=== PATIENT | female | born 1955 | race Caucasian/White ===

== ENCOUNTER → 2023-08-26 10:38 | Outpatient (REF) | payer MEDICARE, SELFPAY | LOC: RAD 10:38 | PROVIDERS: ATTENDING PHYSICIAN Family Medicine | DX: Z01.818 Encounter for other preprocedural examination (principal) | CPT/HCPCS: 71046 ==

== ENCOUNTER 2023-09-17 19:20 | Emergency (ER) | payer MEDICARE, SELFPAY ==
[2023-09-17 19:27] VITALS: BP 130/81
--- NOTE | 2023-09-17 21:34 | ED.GENMED ---
History of Present Illness
General
Chief Complaint: Fall
Source: patient and spouse
Exam Limitations: none
Time Seen by Provider: 09/17/23 21:02
Nursing documentation reviewed up to this point in time: agreed with
History of Present Illness
History of Present Illness:
68-year-old female without significant past medical history presenting to the emergency department today with concerns of a slip and fall hitting her right knee. Was able to walk immediately thereafter did not hit her head did not lose
consciousness.
Past History
Past History
ED Past Medical History: None
Social History
Personal:
Living: with family
Employment: Employed
Review of Systems
Review of Systems
Allergies reviewed?: Yes
All Other Systems: ROS reviewed and negative except as documented in HPI and ROS
Phy Exam
Physical Exam
Physical Exam:
GENERAL: Alert , in no apparent distress
EYE: pupils equal and reactive
NECK: Supple, no significant adenopathy.
ENT: o/p clr, mmm.
CARDIAC: Regular rate and rhythm .
LUNGS: Clear breath sounds bilaterally, no acute respiratory distress, no wheezes/rales/rhonchi
ABDOMEN: Soft, without focal tenderness, no r/g, no cvat
NEUROLOGICAL: Alert and oriented, no focal neuro deficits
SKIN: Warm and dry, skin intact.
MUSCULOSKELETAL: Bruising and edema to the area just medial to the right patella good range of motion and strength of the knee hip and ankle. No joint laxity, well perfused.
PSYCH: Normal and appropriate interaction.
Course
Orders/Labs/Results
Orders:
Orders
09/17/23 20:43
CR Knee- Right 4 Or More View* Urgent
Reason For Exam: fall, pain
Vital Signs
Initial and Last Documented VS:
Initial Vital Signs
Temp Pulse Resp BP Pulse Ox
98.0 F 93 18 130/81 93
09/17/23 19:27 09/17/23 19:27 09/17/23 19:27 09/17/23 19:27 09/17/23 19:27
Last Documented Vital Signs
Temp Pulse Resp BP Pulse Ox
98.0 F 93 18 130/81 93
09/17/23 19:27 09/17/23 19:27 09/17/23 19:27 09/17/23 19:27 09/17/23 19:27
MDM/Problems Addressed
MDM/Problems Addressed:
68-year-old female presenting to the emergency department today with concerns of a fall hitting her right knee at the medial aspect directly. Does have bruising to the area no joint laxity no abnormalities on x-ray patient with likely bruise to the
area hopeful improvement over the next week or so. Given information for follow-up as needed. Return precautions given.
*Critical Care Note
Total Time (30-74mins, 75-104mins- exclusive of procedures): Not Applicable
ED Attending Note
-
Portions of this chart may have been created with voice recognition software.� Occasional wrong word or��sound alike� substitutions may have occurred due to the inherent limitations of voice recognition software.
Discharge Plan
Departure
Patient Disposition: Home (Routine Discharge)
Date of Disposition: 09/17/23
Time of Disposition: 21:34
Patient with high blood pressure during this ER visit?: No
Condition: Good
Covid-19: Not Applicable
Discharge Problem:
Contusion of right knee
Instructions: Contusion (DC)
Referrals:
Amy Snyder DO [Family Provider] -
Arthur Eli MD [Active] - Follow up in 1 week
Activity Restrictions/Additional Instructions:
You came to the emergency department today with concerns of right-sided knee discomfort. You had an x-ray without signs of fracture. This is likely a contusion. Please rest ice compress and elevate. Return to the emergency department for any
worsening, new or concerning symptoms. Follow-up with orthopedics as needed.
Interventions
Interventions:
*Risk Screen - Suicide Last Done: 09/17/23 19:27
*General Assessment Last Done: 09/17/23 19:27
*Neglect/Abuse Screening Last Done: 09/17/23 19:27
ED-Musculoskeletal Assessment Last Done: 09/17/23 20:47
ED- Neurological Assessment Last Done: 09/17/23 20:47
ED-Skin Assessment Last Done: 09/17/23 20:47
Discharge Date and Time
Print Language: LATVIAN
== END 2023-09-17 21:48 | disposition home or self-care (01) ==
LOC: EMR 19:20
PROVIDERS: EMERGENCY PHYSICIAN Emergency Medicine; FAMILY PHYSICIAN Family Medicine
DX: S80.01XA Contusion of right knee, initial encounter (principal); W01.0XXA Fall on same level from slipping, tripping and stumbling without subsequent striking against object, initial encounter
CPT/HCPCS: 99283; 73564

== ENCOUNTER → 2023-09-27 18:34 | Outpatient (REF) | payer MEDICARE, SELFPAY | LOC: PAVMRI 18:34 | PROVIDERS: ATTENDING PHYSICIAN Nurse Practitioner | DX: M25.561 Pain in right knee (principal); Z91.81 History of falling | CPT/HCPCS: 73721 ==

== ENCOUNTER → 2023-10-21 15:32 | Outpatient (REF) | payer MEDICARE, SELFPAY | LOC: WDC 15:32 | PROVIDERS: ATTENDING PHYSICIAN Obstetrics & Gynecology; FAMILY PHYSICIAN Family Medicine | DX: Z13.21 Encounter for screening for nutritional disorder (principal) | CPT/HCPCS: 77063; 77067 ==

== ENCOUNTER 2024-06-05 06:16 | Day surgery (SDC) | payer MEDICARE, SELFPAY | END 2024-06-05 10:18 | disposition home or self-care (01) | LOC: GI 06:16 | PROVIDERS: ATTENDING PHYSICIAN Internal Medicine | DX: Z12.11 Encounter for screening for malignant neoplasm of colon (principal); K57.30 Diverticulosis of large intestine without perforation or abscess without bleeding; D12.4 Benign neoplasm of descending colon | CPT/HCPCS: 45380; 88305 ==

== ENCOUNTER → 2024-09-30 13:16 | Outpatient (REF) | payer MEDICARE, SELFPAY | LOC: MRI 3T 13:16 | PROVIDERS: ATTENDING PHYSICIAN Specialist; FAMILY PHYSICIAN Family Medicine | DX: R42 Dizziness and giddiness (principal) | CPT/HCPCS: 70551 ==

== ENCOUNTER → 2024-10-23 13:02 | Outpatient (REF) | payer MEDICARE, SELFPAY | LOC: WDC 13:02 | PROVIDERS: ATTENDING PHYSICIAN Obstetrics & Gynecology; FAMILY PHYSICIAN Family Medicine | DX: N95.1 Menopausal and female climacteric states (principal); Z78.0 Asymptomatic menopausal state; Z12.31 Encounter for screening mammogram for malignant neoplasm of breast | CPT/HCPCS: 77063; 77067; 77080 ==

== ENCOUNTER → 2024-12-20 10:45 | Outpatient (REF) | payer MEDICARE, SELFPAY | LOC: EMG 10:45 | PROVIDERS: ATTENDING PHYSICIAN Physician Assistant; FAMILY PHYSICIAN Family Medicine | DX: M54.16 Radiculopathy, lumbar region (principal); M62.81 Muscle weakness (generalized); M62.561 Muscle wasting and atrophy, not elsewhere classified, right lower leg; R20.0 Anesthesia of skin | CPT/HCPCS: 95886; 95910 ==

== ENCOUNTER → 2024-12-20 18:27 | Outpatient (REF) | payer MEDICARE, SELFPAY | LOC: PAVMRI 18:27 | PROVIDERS: ATTENDING PHYSICIAN Physician Assistant | DX: M25.562 Pain in left knee (principal); M54.16 Radiculopathy, lumbar region; M62.81 Muscle weakness (generalized); M62.561 Muscle wasting and atrophy, not elsewhere classified, right lower leg; R20.0 Anesthesia of skin | CPT/HCPCS: 72148; 73721; 95886; 95910 ==